=== PATIENT | male | born 2000 | race Hispanic/Latino ===

== ENCOUNTER 2018-08-17 00:36 | Emergency (ER) | payer OTHER ==
--- NOTE | 2018-08-17 08:17 | CT ---
PRELIMINARY REPORT/[facility]/EMERGENCY AFTER HOURS PROCEDURE: EXAM: CT Head Without Contrast EXAM DATE/TIME: 08/17/2018 1:31 AM CLINICAL HISTORY: 17 years old, male; Injury or trauma; Initial encounter; Blunt trauma (contusions or hematomas); Patient HX: 17 y/o m presents to ED S/P fall. PT states he slipped on some water while he was walking, causing him to fall backward and hit his head on fell. PT reports positive loc, with duratio n of 5-10 seconds. TECHNIQUE: Imaging protocol: Axial computed tomography images of the head without contrast. COMPARISON: No relevant prior studies available. FINDINGS: Brain: Normal. No hemorrhage. Unremarkable white matter. No mass effect. Ventricles: Normal. No ventriculomegaly. Bones/joints: Unremarkable. No acute fracture. Sinuses: Visualized sinuses are unremarkable. No fluid levels. Mastoid air cells: Visualized mastoid air cells are well aerated. No mastoid effusion. Soft tissues: Unremarkable. IMPRESSION: No acute intracranial abnormality. Thank you for allowing us to participate in the care of your patient. Dictated and Authenticated by: Harinder Macias MD 08/17/2018 1:53 AM Central Time ([place] & [place]) FINAL REPORT by Dr. Triana: EMERGENCY AFTER HOURS STUDY: CT BRAIN NONCONTRAST: DATE: 08/17/2018 HISTORY: 17-year-old male status post acute blunt head trauma. FINDINGS: There is no evidence of acute intra-axial or extra-axial hemorrhage. There is no midline shift or any other mass effect. There is no extra-axial fluid collection. The ventricles are normal in size and configuration. The tympanomastoid cavities, and the upper portions of the paranasal sinuses included in these images, are grossly clear. Calvarium is intact. Agree with preliminary report by [facility]. IMPRESSION: Normal. Transcribed Date/Time: 08/17/2018 9:24 AM
== END 2018-08-17 02:05 ==
LOC: ERS 00:36 → EEVIPCON 00:36 → ERS 02:05
DX: S06.9X9A Unspecified intracranial injury with loss of consciousness of unspecified duration, initial encounter (principal); W01.0XXA Fall on same level from slipping, tripping and stumbling without subsequent striking against object, initial encounter
CPT/HCPCS: 70450